=== PATIENT | female | born 1980 | race Caucasian/White ===

== ENCOUNTER 2017-08-17 13:03 | Emergency (ER) | payer BC, MEDICAID, OTHER ==
[2017-08-17 13:18] VITALS: BP 130/87
--- NOTE | 2017-08-17 14:23 | UC ---
Abdominal Pain Female HPI - HPI Summary HPI Summary: This is an otherwise healthy 36 yo female who presents with complaints of diarrhea x 3d. The first day she had a fever and abdominal pain, but those symptoms have resolved. She is still having several episodes of diarrhea daily. No blood. Some nausea, but no vomiting. Her children and have similar symptoms. Her daughter was sick first and is now feeling better. No recent travel. - History of Current Complaint Chief Complaint: UCGeneralIllness Stated Complaint: DIARRHEA, AND ABDOMINAL PAIN Hx Last Menstrual Period: 08/11/17 Pain Intensity: 0 Allergies/Adverse Reactions: Allergies Allergy/AdvReac Type Severity Reaction Status Date / Time No Known Allergies Allergy Verified 08/17/17 13:10 Home Medications: Home Medications Naproxen Sodium [Aleve] 220 mg PO Q6HR PRN 08/17/17 [History Confirmed 08/17/17] PMH/Surg Hx/FS Hx/Imm Hx Previously Healthy: Yes - Surgical History Surgical History: Yes Surgery Procedure, Year, and Place: . - Family History Known Family History: Positive: Other - diarrheal illness - Social History Alcohol Use: None Substance Use Type: None Smoking Status (MU): Never Smoked Tobacco Have You Smoked in the Last Year: No - Immunization History Most Recent Influenza Vaccination: none Most Recent Tetanus Shot: unknown Most Recent Pneumonia Vaccination: none Review of Systems Constitutional: Fever, Chills, Fatigue Skin: Negative Eyes: Negative ENT: Negative Respiratory: Negative Cardiovascular: Negative Gastrointestinal: Abdominal Pain, Diarrhea, Nausea Genitourinary: Negative Motor: Negative Neurovascular: Negative Musculoskeletal: Negative Neurological: Negative Psychological: Negative Is Patient Immunocompromised?: No All Other Systems Reviewed And Are Negative: Yes Physical Exam Triage Information Reviewed: Yes Appearance: Well-Appearing Vital Signs: Initial Vital Signs Temp 97.7 F 08/17/17 13:11 Pulse 84 08/17/17 13:11 Resp 16 08/17/17 13:11 BP 130/87 08/17/17 13:11 Pulse Ox 100 08/17/17 13:11 Vital Signs Reviewed: Yes ENT: Positive: Normal ENT inspection - MM mildly dry Neck: Positive: Supple, Nontender Respiratory: Positive: Chest non-tender, Lungs clear, Normal breath sounds. Negative: Crackles, Rhonchi, Wheezing Cardiovascular: Positive: RRR, No Murmur Abdomen Description: Positive: Nontender, Soft Bowel Sounds: Positive: Present Musculoskeletal Exam: Normal Musculoskeletal: Positive: Strength Intact Neurological Exam: Normal Psychological Exam: Normal Skin Exam: Normal Abd Pain Female Course/Dx - Course Course Of Treatment: This is an otherwise healthy 36 yo female with a 3d h/o diarrhea with similar symptoms in household contacts. Exam is benign. Likely a viral gastroenteritis. Recommended symptomatic care. She can take some Immodium to limit diarrhea, but cautioned against excessive use that may extend her illness or cause constipation. - Differential Dx/Diagnosis Differential Diagnosis: Appendicitis, Constipation, Pancreatitis, Urinary Tract Infection Provider Diagnoses: Viral gastroenteritis Discharge - Sign-Out/Discharge Documenting (check all that apply): Discharge - Discharge Plan Condition: Stable Disposition: HOME Prescriptions: Ondansetron ODT TAB* [Zofran 4 MG Odt TAB*] 4 mg PO Q6H PRN #30 tab.odt PRN Reason: Nausea/Vomiting Patient Education Materials: Gastroenteritis (DC) Referrals: Cedric Sotelo MD [Primary Care Provider] - If Needed Additional Instructions: Instructions: 1. Use Zofran to help with nausea 2. Drink lots of fluids and maintain a soft, bland diet 3. You may use a small amount of Immodium to slow the diarrhea - buy it over the counter - Billing Disposition and Condition Condition: STABLE Disposition: HOME
== END 2017-08-17 14:25 | disposition home or self-care (01) ==
LOC: UCEAST 13:03
DX: A08.4 Viral intestinal infection, unspecified (principal)
CPT/HCPCS: 99212; G0463

== ENCOUNTER 2018-11-15 09:10 | Emergency (ER) | payer OTHER ==
[2018-11-15 09:18] VITALS: BP 128/64
--- NOTE | 2018-11-15 10:05 | UC ---
UC General HPI - HPI Summary HPI Summary: 38-year-old female comes in with a chief complaint of shortness of breath and chest pain. Last evening while resting should her chest felt heavy and she felt short of breath. She also has some dizziness. This morning when she woke up she felt better but then had more episodes of chest pain and shortness of breath. Chest pain is worse a 6 out of 10 in the middle of her chest. No calf pain no edema. No sweating. Some nausea. Patient has been having about one week of upper respiratory tract infection symptoms. She's nervous about this being her heart. She is not on control pills no history of DVT or pulmonary embolus she is not a smoker. - History of Current Complaint Chief Complaint: UCRespiratory Stated Complaint: TROUBLE BREATHING Time Seen by Provider: 11/15/18 09:44 Hx Last Menstrual Period: 11/09/18 Pain Intensity: 6 - Allergy/Home Medications Allergies/Adverse Reactions: Allergies Allergy/AdvReac Type Severity Reaction Status Date / Time No Known Allergies Allergy Verified 11/15/18 09:18 Home Medications: Home Medications NK [No Home Medications Reported] 11/15/18 [History Confirmed 11/15/18] PMH/Surg Hx/FS Hx/Imm Hx Previously Healthy: Yes - Surgical History Surgical History: Yes Surgery Procedure, Year, and Place: . - Family History Known Family History: Positive: Other - diarrheal illness - Social History Alcohol Use: None Substance Use Type: None Smoking Status (MU): Never Smoked Tobacco Have You Smoked in the Last Year: No - Immunization History Most Recent Influenza Vaccination: none Most Recent Tetanus Shot: unknown Most Recent Pneumonia Vaccination: none Review of Systems All Other Systems Reviewed And Are Negative: Yes Constitutional: Positive: Other - SEE HPI Skin: Positive: Negative Eyes: Positive: Negative ENT: Positive: Other - SEE HPI Respiratory: Positive: Shortness Of Breath Cardiovascular: Positive: Chest Pain Gastrointestinal: Positive: Nausea Motor: Positive: Negative Neurovascular: Positive: Negative Musculoskeletal: Positive: Negative. Negative: Calf Tenderness Neurological: Positive: Negative Psychological: Positive: Negative Is Patient Immunocompromised?: No Physical Exam Triage Information Reviewed: Yes Appearance: Well-Appearing, No Pain Distress, Well-Nourished Vital Signs: Initial Vital Signs Temp 97.1 F 11/15/18 09:14 Pulse 76 11/15/18 09:14 Resp 18 11/15/18 09:14 BP 128/64 11/15/18 09:14 Pulse Ox 100 11/15/18 09:14 Vital Signs Reviewed: Yes Eye Exam: Normal Eyes: Positive: Conjunctiva Clear ENT: Positive: Pharynx normal, TMs normal Neck exam: Normal Neck: Positive: Supple, Nontender Respiratory: Positive: Lungs clear, Normal breath sounds, No respiratory distress Cardiovascular: Positive: RRR Abdomen Description: Positive: Nontender, Soft Musculoskeletal Exam: Normal Musculoskeletal: Positive: Strength Intact, ROM Intact, No Edema - no calf tenderness Neurological: Positive: Alert, Muscle Tone Normal Psychological Exam: Normal Psychological: Positive: Age Appropriate Behavior Skin Exam: Normal Skin: Positive: Rashes Diagnostics - EKG Cardiac Rate: Bradycardia - AT 1004 Cardiac Rhythm: Sinus: Normal Ectopy: PACs Summary of EKG Findings: BORDERLINE T ABNORMALITIES, INFERIOR LEADS Course/Dx - Course Course Of Treatment: I discussed the EKG with the patient and her family. It is bradycardic at 48 bpm. She does have a flipped T in lead 3. I do not appreciate any ischemic acute changes at this time. Because the patient's complaining of chest pain and shortness of breath I recommended further evaluation in the emergency department. They declined embolus transport they will be going by PO. - Diagnoses Provider Diagnosis: Chest pain, Shortness of breath, Dizziness Discharge - Sign-Out/Discharge Documenting (check all that apply): Patient Departure All imaging exams completed and their final reports reviewed: No Studies - Discharge Plan Condition: Stable Disposition: HOME-RECOMMEND TO ED Referrals: Melvin eBltran MD [Primary Care Provider] - Additional Instructions: GO DIRECTLY TO THE EMERGENCY DEPARTMENT FOR FURTHER EVALUATION. - Billing Disposition and Condition Condition: STABLE Disposition: Home-Recommend to ED
== END 2018-11-15 11:10 | disposition short-term general hospital (02) ==
LOC: UCEAST 09:10
DX: R07.9 Chest pain, unspecified (principal); R06.02 Shortness of breath; R42 Dizziness and giddiness
CPT/HCPCS: 93005; 99213; G0463

== ENCOUNTER 2018-11-15 11:22 | Emergency (ER) | payer OTHER ==
--- NOTE | 2018-11-15 11:51 | ED ---
Shortness of Breath - HPI Summary HPI Summary: This patient is a 38 year old F presenting to [facility] by EMS accompanied by daughter with a chief complaint of shortness of breath since the night of . Per triage, pt has had an upper respiratory infection for one week, and began feeling a heaviness in her chest the night of 11/13/18. She went to [facility] the morning of 11/15/18 and when EMS arrived she was found having a panic attack. Her breathing was brought under control after being coached on deep breathing. Pt reports JENSEN with current severity 9/10, coughing, feeling very tired, not sleeping last night. Pt denies chest pain upon arrival and taking any medications. - History of Current Complaint Hx Obtained From: Patient Onset/Duration: Lasting Hours - began night of 11/13/18 Current Severity: Severe Aggravating Factors: Nothing Alleviating Factors: Other - Deep Breaths Associated Signs & Symptoms: Negative - Chest pain, Cough (Nonproductive) - Allergy/Home Medications Allergies/Adverse Reactions: Allergies Allergy/AdvReac Type Severity Reaction Status Date / Time No Known Allergies Allergy Verified 11/15/18 11:32 PMH/Surg Hx/FS Hx/Imm Hx Endocrine/Hematology History: Denies: Hx Diabetes, Hx Thyroid Disease Cardiovascular History: Denies: Hx Hypertension Respiratory History: Denies: Hx Asthma, Hx Chronic Obstructive Pulmonary Disease (COPD) GI History: Denies: Hx Ulcer - Surgical History Surgery Procedure, Year, and Place: . Infectious Disease History: Denies: Hx Hepatitis, Hx Human Immunodeficiency Virus (HIV) - Family History Known Family History: Positive: Other - diarrheal illness - Social History Alcohol Use: None Substance Use Type: Reports: None Hx Tobacco Use: No Smoking Status (MU): Never Smoked Tobacco Have You Smoked in the Last Year: No Review of Systems Positive: Fatigue Negative: Chest Pain Positive: Shortness Of Breath, Cough Positive: Headache Positive: Other - Pos - Panic Attack All Other Systems Reviewed And Are Negative: Yes Physical Exam - Summary Physical Exam Summary: Appearance: The patient is well-nourished in no acute distress and in no acute pain. Skin: The skin is warm and dry and skin color reflects adequate perfusion. HEENT: The head is normocephalic and atraumatic. The pupils are equal and reactive. The conjunctivae are clear and without drainage. Nares are patent and without drainage. Mouth reveals moist mucous membranes and the throat is without erythema and exudate. The external ears are intact. The ear canals are patent and without drainage. The tympanic membranes are intact. Neck: The neck is supple with full range of motion and non-tender. There are no carotid bruits. There is no neck vein distemension. Respiratory: Chest is non-tender. Lungs are clear to auscultation and breath sounds are symmetrical and equal. Cardiovascular: Heart is regular rate and rhythm. There is no murmur or rub auscultated. There is no peripheral edema and pulses are symmetrical and equal. Abdomen: The abdomen is soft and non-tender. There are normal bowel sounds heard in all four quadrants and there is no organomegaly palpated. Musculoskeletal: There is no back tenderness noted. Extremities are non-tender with full range of motion. There is good capillary refill. There is no peripheral edema or calf tenderness elicited. Neurological: Patient is alert and oriented to person, place and time. The patient has symmetrical motor strength in all four extremities. Cranial nerves are grossly intact. Deep tendon reflexes are symmetrical and equal in all four extremities. GCS 15 Psychiatric: The patient has an appropriate affect and does not exhibit any anxiety or depression. Triage Information Reviewed: Yes Vital Signs On Initial Exam: Initial Vitals Temp Pulse Resp BP Pulse Ox 98.6 F 66 15 145/85 100 11/15/18 11:27 11/15/18 11:27 11/15/18 11:27 11/15/18 11:27 11/15/18 11:27 Vital Signs Reviewed: Yes - Kelsey Coma Scale Best Eye Response: 4 - Spontaneous Best Motor Response: 6 - Obeys Commands Best Verbal Response: 5 - Oriented Coma Scale Total: 15 Diagnostics - Laboratory Result Diagrams: 11/15/18 11:47 11/15/18 11:47 Lab Statement: Any lab studies that have been ordered have been reviewed, and results considered in the medical decision making process. - Radiology CXR Radiology Interpretation Completed By: Radiologist Summary of Radiographic Findings: CXR reveals, per radiologist, IMPRESSION: NO ACTIVE CARDIOPULMONARY DISEASE IS NOTED. ED physician has reviewed this radiology report. - CT Brain CT CT Interpretation Completed By: Radiologist Summary of CT Findings: Brain CT reveals, per radiologist IMPRESSION: No intracranial mass or hemorrhage is noted. ED physician has reviewed this radiology report. - EKG 1141 Cardiac Rate: NL EKG Rhythm: Sinus Rhythm Summary of EKG Findings: An EKG reveals normal sinus rhythm, non specific inferior changes. Re-Evaluation - Re-Evaluation Second Eval Re-Evaluation Time: 16:12 Comment: Discussed results and plan to discharge with patient. Patient is agreeable with this plan. First Eval Re-Evaluation Time: 16:12 Comment: Discussed results and plan to discharge with patient. Patient is agreeable with this plan. Course/Dx - Course Course Of Treatment: Ms. Tijerina has had a URI for about a week. She developed a heaviness in her chest and some shortness of breath today. She presented with the [facility] where the ambulance was called. The EMS personnel felt she was having a panic attack and got her slow respirations. Here she looked tired out but not toxic had stable vital signs. She was placed on a monitor and an EKG and chest x-ray were obtained which were within normal limits labs were obtained including a delayed troponin and also was normal her physical exam was unremarkable. I'm not sure the etiology she may just have panicked or she may have panic secondary to some bronchospasm that was relieved. I gave her an albuterol inhaler to try if the symptoms returned. - Diagnoses Provider Diagnoses: Bronchospasm Discharge - Sign-Out/Discharge Documenting (check all that apply): Patient Departure - Discharge Patient Received Moderate/Deep Sedation with Procedure: No - Discharge Plan Condition: Stable Disposition: HOME Patient Education Materials: Bronchospasm (ED) Forms: *Work Release Referrals: Melvin Beltran MD [Primary Care Provider] - 3 Days Additional Instructions: Follow up with primary care provider within 2-3 days. RETURN TO THE EMERGENCY DEPARTMENT FOR CHANGING OR WORSENING SYMPTOMS. - Billing Disposition and Condition Condition: STABLE Disposition: Home - Attestation Statements Document Initiated by Scribe: Yes Documenting Scribe: Shelia Soares Provider For Whom Jose is Documenting (Include Credential): Dr Aime Todd MD Scribe Attestation: Shelia Walters scribed for Dr Aime Todd MD on 11/15/18 at 1916. Scribe Documentation Reviewed: Yes Provider Attestation: The documentation as recorded by the Shelia jerome accurately reflects the service I personally performed and the decisions made by me, Dr Aime Todd MD Status of Scribe Document: Viewed
[2018-11-15 11:56] LABS: ABS Basophils 0.1 10^3/ul (0-0.2); ABS Eosinophils 0.2 10^3/ul (0-0.6); ABS Lymphocytes 2.9 10^3/ul (1.0-4.8); ABS Monocytes 0.7 10^3/ul (0-0.8); ABS Neutrophils 3.9 10^3/ul (1.5-7.7); Eosinophil % 2.5 %; Hematocrit 37 % (35-47); Hemoglobin 11.8 g/dL (12.0-16.0); Lymphocyte % 37.5 %; Mean Corpuscular HGB Conc 32 g/dL (31-36); Mean Corpuscular Hemoglobin 23 pg (27-31); Mean Corpuscular Volume 72 fL (80-97); Nucleated Red Blood Cells % 0.1; Platelet Count 424 10^3/uL (150-450); Red Blood Count 5.07 10^6 /uL (3.70-4.87); Red Cell Distribution Width 17 % (10-15); White Blood Count 7.7 10^3/uL (3.5-10.8)
[2018-11-15 12:06] LABS: INR 0.96 (0.82-1.09)
[2018-11-15 12:16] LABS: Microcytosis 2+
[2018-11-15 12:20] LABS: ALT 19 U/L (7-52); AST 20 U/L (13-39); Albumin/Globulin Ratio 1.3 (1-3); Alkaline Phosphatase 70 U/L (34-104); Anion Gap 10 mmol/L (2-11); BUN/Creatinine Ratio 22.9 (8-20); Blood Urea Nitrogen 16 mg/dL (6-24); CO2 Carbon Dioxide 22 mmol/L (22-32); Calcium 9.4 mg/dL (8.6-10.3); Chloride 108 mmol/L (101-111); EGFR African American 112.1 (>60); EGFR Non-African American 92.7 (>60); Globulin 3.2 g/dL (2-4); Glucose 99 mg/dL (70-100); Potassium 3.6 mmol/L (3.5-5.0); Sodium 140 mmol/L (135-145); Total Protein 7.2 g/dL (6.4-8.9)
[2018-11-15 12:24] LABS: HCG Pregnancy < 0.60 mIU/mL
[2018-11-15] MEDS ORDERED: Ibuprofen TAB* 600 MG PO ONE (13:20)
[2018-11-15] MEDS ORDERED: Albuterol HFA INHALER* 8 gm MDI INH PRN (16:15)
[2018-11-15 16:50] VITALS: BP 123/73
== END 2018-11-15 17:03 | disposition home or self-care (01) ==
LOC: ED 11:22
DX: J98.01 Acute bronchospasm (principal)
CPT/HCPCS: 36415; 70450; 71045; 80053; 83605; 83880; 84484; 84702; 85025; 85379; 85610; 86140; 93005; 99284; A9270-GY